=== PATIENT | male | born 1930 | race Hispanic/Latino ===

== ENCOUNTER → 2017-05-07 | Outpatient (CLI) | payer OTHER ==
[~2017-05-07] MED LIST: AFRSP NASAL; ASPI-1181 PO; FURO20TA4 PO; MAGN400T40 PO
== END | disposition home or self-care (01) ==
LOC: RAH 12:31
PROVIDERS: ATTEND Family Medicine
DX: I73.9 Peripheral vascular disease, unspecified (principal)
CPT/HCPCS: 93925; 93970

== ENCOUNTER → 2017-06-28 | Outpatient (CLI) | payer OTHER | END | disposition home or self-care (01) | LOC: OIH 11:19 | PROVIDERS: ATTEND Family Medicine | DX: M47.896 Other spondylosis, lumbar region (principal); M48.061 Spinal stenosis, lumbar region without neurogenic claudication; M43.16 Spondylolisthesis, lumbar region; M47.892 Other spondylosis, cervical region; M19.012 Primary osteoarthritis, left shoulder; S02.80XA Fracture of other specified skull and facial bones, unspecified side, initial encounter for closed fracture; W19.XXXA Unspecified fall, initial encounter; Y93.89 Activity, other specified; Y92.89 Other specified places as the place of occurrence of the external cause; Y99.8 Other external cause status | CPT/HCPCS: 70150; 71100; 72040; 72100; 73030 ==

== ENCOUNTER → 2017-07-23 | Outpatient (CLI) | payer OTHER | END | disposition home or self-care (01) | LOC: RAH 09:15 | PROVIDERS: ATTEND Family Medicine | DX: I48.0 Paroxysmal atrial fibrillation (principal); I05.0 Rheumatic mitral stenosis | CPT/HCPCS: 93306 ==

== ENCOUNTER 2017-09-15 05:49 | Observation (INO) | payer OTHER ==
[2017-09-13 09:51] VITALS: BP 128/64
[2017-09-13 10:00] LABS: BASOPHILS % (AUTO) 0.8 % (0.0-5.0); EOSINOPHILS % (AUTO) 3.9 % (0.0-8.0); HEMATOCRIT 36.1 % (42-54); LYMPHOCYTES % (AUTO) 15.3 % (21.0-51.0); MEAN CORPUSCULAR HEMOGLOBIN 34.9 pg (27.0-33.0); MEAN CORPUSCULAR HGB CONC 35.9 g/dL (32.0-36.0); MEAN CORPUSCULAR VOLUME 97.2 fL (79-99); MONOCYTES % (AUTO) 6.7 % (3.0-13.0); NEUTROPHILS % (AUTO) 73.3 % (40.0-77.0); PLATELET COUNT (AUTO) 138 K/uL (130-400); RED BLOOD CELL COUNT(AUTO) 3.71 MIL/uL (4.50-6.20); WHITE BLOOD COUNT (AUTO) 5.3 K/uL (4.8-10.8)
[2017-09-13 10:12] LABS: CREATININE 0.8 mg/dL (0.5-1.5); POTASSIUM 3.9 mmol/L (3.5-5.1)
[2017-09-13 10:25] LABS: INR 0.95 (0.85-1.15); PARTIAL THROMBOPLASTIN TIME 29.5 SEC (26.3-35.5)
[~2017-09-15] VITALS: Ht 166.4 cm; Wt 69.0 kg
[2017-09-15] VITALS (11 sets, daily range): BP systolic 109–153; BP diastolic 63–94
[2017-09-15] MEDS ORDERED: SODIUM CHLORIDE 0.9% 1000ML 1,000 ML IV ONE (06:21)
[2017-09-15] MEDS ORDERED: BUPIVACAINE/PF 0.25% 30ML VIAL IJ ONE (07:16)
[2017-09-15] MEDS ORDERED: ISOVUE-300 100 ML VIAL IV ONE (07:16)
[2017-09-15] MEDS ORDERED: CEFAZOLIN SODIUM 1 GM VIAL ONE (07:16)
[2017-09-15] MEDS ORDERED: LIDOCAINE HCL 1% MDV 50ML VIAL ONE (07:16)
[2017-09-15] MEDS ORDERED: MIDAZOLAM HCL 1 MG/ML 2ML VIAL ONE (07:25)
[2017-09-15] MEDS ORDERED: MEPERIDINE-PF 25 MG/ML SYG ONE (07:25)
[2017-09-15] MEDS ORDERED: ACETAMINOPHEN-CODEINE 300/30MG TAB PO PRN ×2 (09:00)
[2017-09-15] MEDS: ASPIRIN 81 MG EC TAB PO SCH (09:00)
[2017-09-15] MEDS ORDERED: ACETAMINOPHEN 325 MG TAB PO PRN (09:00)
[2017-09-15] MEDS: MAGNESIUM OXIDE 400 MG TABLET PO SCH (11:59)
[2017-09-15] MEDS: FUROSEMIDE 20 MG TABLET PO SCH (11:59)
[2017-09-15] MEDS ORDERED: OXYMETAZOLINE HCL SPRAY 15 ML BOTTLE NS SCH (21:00)
[2017-09-16 00:33] VITALS: BP 148/91
[2017-09-16] MEDS ORDERED: ONDANSETRON HCL 4 MG/2 ML VIAL ONE (02:38)
[2017-09-16] MEDS ORDERED: ONDANSETRON HCL 4 MG/2 ML VIAL IVP SCH (02:53)
[2017-09-16 03:06] VITALS: BP 136/83
[2017-09-16 07:00] VITALS: BP 131/72
[2017-09-16] MEDS: ASPIRIN 81 MG EC TAB PO SCH (08:52)
[2017-09-16] MEDS: FUROSEMIDE 20 MG TABLET PO SCH (08:53)
[2017-09-16] MEDS: MAGNESIUM OXIDE 400 MG TABLET PO SCH (08:53)
[2017-09-16] MEDS ORDERED: ONDANSETRON HCL MDV 20ML 2 MG/ML VIAL IVP SCH (09:45)
[2017-09-16 11:00] VITALS: BP 119/72
== END 2017-09-16 14:15 | disposition home or self-care (01) ==
LOC: DAH 05:49 → DAHIP 05:50 → DAH 05:50 → 2AH 09:24
PROVIDERS: ADMIT Internal Medicine; ATTEND Internal Medicine
DX: I49.5 Sick sinus syndrome (principal); I10 Essential (primary) hypertension; I87.2 Venous insufficiency (chronic) (peripheral); N40.0 Benign prostatic hyperplasia without lower urinary tract symptoms; Z95.0 Presence of cardiac pacemaker; E78.5 Hyperlipidemia, unspecified; R55 Syncope and collapse
CPT/HCPCS: 33208; 36415; 71045; 80048; 82948 ×6; 85025; 85610; 85730; 96374; A4606; C1785; C1898 ×2; G0378 ×32; J0690; J2175; J2250; J2405; J3490 ×2; J7030; Q9967; 99156; 99157

== ENCOUNTER → 2018-03-28 | Outpatient (CLI) | payer OTHER | END | disposition home or self-care (01) | LOC: RAH 14:27 | PROVIDERS: ATTEND Family Medicine | DX: M79.89 Other specified soft tissue disorders (principal); N40.0 Benign prostatic hyperplasia without lower urinary tract symptoms; I73.9 Peripheral vascular disease, unspecified | CPT/HCPCS: 93970 ==

== ENCOUNTER → 2019-02-15 | Outpatient (CLI) | payer OTHER | END | disposition home or self-care (01) | LOC: RAH 12:44 | PROVIDERS: ATTEND Family Medicine | DX: R60.0 Localized edema (principal) | CPT/HCPCS: 93971 ==